=== PATIENT | female | born 1970 | race African-American/Black ===

== ENCOUNTER 2016-11-30 12:05 | Inpatient (IN) ==
[2016-11-30] MEDS ORDERED: NITROGLYCERIN 2% OINT 1 INCH/GM PACK TOP STA (12:23)
--- NOTE | 2016-11-30 12:29 | EKG Report ---
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
[2016-11-30] MEDS: NITROGLYCERIN SL 0.4 MG TABLET SL PRN ×2 (12:32→13:10)
[2016-11-30] MEDS ORDERED: NITROGLYCERIN 2% OINT 1 INCH/GM PACK TOP ONE (13:25)
[2016-11-30] MEDS ORDERED: ENOXAPARIN 80 MG/0.8 ML SYRINGE SUBCUT STA (13:30)
[2016-11-30] MEDS ORDERED: METOPROLOL TARTRATE 5 MG/5 ML VIAL IV STA (13:31)
[2016-11-30] MEDS ORDERED: METOPROLOL TARTRATE 5 MG/5 ML VIAL IV ONE (13:49)
[2016-11-30] MEDS ORDERED: ENOXAPARIN 80 MG/0.8 ML SYRINGE SUBCUT ONE (13:49)
[2016-11-30] MEDS ORDERED: MAGNESIUM SULF RIDER 2 GM in PREMIX 1 EACH IV PRN (13:52)
[2016-11-30] MEDS ORDERED: ACETAMINOPHEN 325 MG TABLET PO PRN (13:52)
[2016-11-30] MEDS ORDERED: ZALEPLON 5 MG CAPSULE PO PRN (13:52)
[2016-11-30] MEDS ORDERED: MAGNESIUM SULF RIDER 4 GM in PREMIX 1 EACH IV PRN (13:52)
[2016-11-30] MEDS ORDERED: MORPHINE 2 MG/1 ML SYRINGE IV PRN (13:52)
--- NOTE | 2016-11-30 13:52 | Emergency Department Note ---
Felix Driver Brittany, am scribing for, and in the presence of, Praful Anderson MD 12:27. Justin Driver Doug C, MD, personally performed the services described in this documentation, ascribed by Alix Washington in my presence, and it is both accurate and complete [id number] . Arrival - Arrival Chief Complaint: Chest Pain Stated Complaint: chest pain ED Nursing Triage Note: Transfer from [place] ER for further evaluation mid- sternal chest pain and increased troponin 0.149. +mid-sternal chest pain radiating into right arm onset last pm. +nausea. Denies Shortness of breath. Mode of Arrival: Stretcher Limitations: No Limitations Source: Patient, RN Notes Reviewed Time Seen by Provider: 11/30/16 12:23 - History of Present Illness HPI Narrative: Patient 45-year-old black female transferred here from [place]' emergency room after she developed substernal chest pain. Patient states this began last night around 10 PM. Patient is sharp substernal pain that radiates to both her arms. Patient states she has nausea and shortness of breath associated with this. Patient has had a previous myocardial infarction about a year ago and told she had a left heart catheterization at that time that showed no evidence of coronary artery stenosis. Patient states his pain is intermittent lasting no more than 20 or 30 minutes. Patient states her pain was 8 of 10 when she arrived to the emergency room. Patient states he continues to smoke about a pack cigarettes a day in spite of riley direction to the contrary. Onset (ago): hour(s) (14) Consistency: constant Severity: severe Severity scale (1-10): 8 Quality: sharp Date of Last Menstrual Period: 11/19/16 Allergies/Adverse Reactions: Allergies Allergy/AdvReac Type Severity Reaction Status Date / Time No Known Allergies Allergy Verified 11/30/16 12:11 Home Medications: Home Medications Medication Instructions Recorded Confirmed Type Lisinopril/Hctz 20-25 [Prinzide 1 tablet PO DAILY 03/04/16 11/30/16 History 20-25] Promethazine Tab [Phenergan Tab] 25 mg PO Q6H PRN 11/30/16 11/30/16 History Ranitidine Tab [Zantac Tab] 75 mg PO DAILY 11/30/16 11/30/16 History Review of System - Review of System 12 point system: reviewed and no additional remarkable complaints except as stated - Review of System Constitutional: Absent: chills, diaphoresis, fever Eyes: Absent: vision change Head/Ears/Nose/Throat: Absent: nasal drainage, sore throat Respiratory: Absent: respiratory distress Cardiovascular: Present: as per HPI, chest pain Gastrointestinal: Present: nausea. Absent: abdominal pain, vomiting, diarrhea, constipation Genitourinary female: Absent: dysuria, frequency, urgency Musculoskeletal: Present: as per HPI, arm pain. Absent: back pain, leg pain, neck pain Skin: Absent: rash Neurological: Absent: headache Psychiatric: Absent: anxiety, depression Hematological/Lymphatic: Absent: easy bleeding, easy bruising Medical,Surgical,& Family Hx - Medical History Cardio: History of: Hypertension, [place] ("last year") - Surgical History HEENT Surgeries: Comment Only: Tonsilectomy & Adenoidectomy (Tonsilectomy) Reproductive Surgeries: Surgical HX of;: Tubal Ligation - Family History Family History: Reports;: Family Diabetes, Family Heart Disease, Family Hypertension - Social History Smoking Status: Current every day smoker Frequency of Alcohol Use: None Type of Drug Use: None Exam Vital Signs: Vital Signs Temperature 97.9 F 11/30/16 12:05 Pulse Rate 95 H 11/30/16 13:00 Respiratory Rate 20 11/30/16 13:00 Blood Pressure 143/92 11/30/16 13:00 O2 Sat by Pulse Oximetry 97 11/30/16 13:00 - General General appearance: alert, in no apparent distress, other (smells strongly of cigarettes) - Head Head exam: Present: normocephalic - Eye Eye exam: Present: PERRL, EOMI - ENT ENT exam: Present: normal exam - Neck Neck exam: Present: normal inspection, full ROM, trachea midline - Chest Chest inspection: Present: normal inspection, symmetric chest wall rise - Respiratory Respiratory exam: Present: normal lung sounds bilaterally - Cardiovascular Cardiovascular exam: Present: regular rate, normal rhythm, normal heart sounds - Abdominal Exam Abdominal exam: Present: soft, normal bowel sounds. Absent: tenderness - Extremities Exam Extremities exam: Present: normal inspection - Back Exam Back exam: Present: normal inspection - Neurological Exam Neurological exam: Present: alert, oriented X3, CN II-XII intact. Absent: motor sensory deficit - Psychiatric Psychiatric exam: Present: normal affect - Skin Skin exam: Present: warm, dry Course Course Narrative: Patient's clinical presentation, laboratory and radiographic findings were discussed with Dr. Perez. He will admit the patient to his services to a telemetry bed. Patient became pain-free after nitroglycerin, metoprolol and subcu Lovenox. Results - Labs Lab Results: I have reviewed the patients labs Labs: Laboratory Tests 11/30/16 12:28 Troponin I 0.137 H - EKG EKG results: interpreted by CLEOPATRA, sinus rhythm (Sinus tachycardia with heart rate of 101 bpm), no acute changes - Diagnostic Findings Procedure: Chest x-ray: report reviewed by me (Chest x-ray from [facility] was unremarkable.) Disposition Clinical Impression: Non-STEMI (non-ST elevated myocardial infarction) Case discussed with: patient, patient's family Disposition: Still a Patient Condition: Guarded Time of Disposition: 13:52
--- NOTE | 2016-11-30 14:19 | EKG Report ---
Stationary ECG Study 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
[2016-11-30 15:59] LABS: Basophils % 0.2 % (0.0-0.8); Hematocrit 33.1 VOL% (35.7-47.0); Hemoglobin 10.3 GM/DL (12.0-16.0); Immature Granulocytes % 0.6 %; Immature Granulocytes Absolute 0.05 #; Lymphocytes # 1.6 10*3/uL (1.4-4.0); Mean Corpuscular HGB Conc 31.1 GM/DL (32-36); Mean Corpuscular Hemoglobin 19 PG (27-34); Mean Corpuscular Volume 60.7 FL (87-102); Mean Platelet Volume 9.6 FL (9.6-12.0); Monocytes # 0.7 10*3/uL (0.11-0.8); Monocytes % 8.6 % (1.7-12.7); Neutrophils # 6.2 10*3/uL (1.4-7.4); Neutrophils % 71.6 % (38.7-73.9); Platelet Count 381 T/CUMM (130-400); Red Blood Count 5.45 MC/CUMM (3.8-5.5); Red Cell Distribution Width 23.3 % (9.3-17.3); White Blood Count 8.6 T/CUMM (4-12)
[2016-11-30 16:10] LABS: Calcium 9.6 MG/DL (8.5-10.1); Osmolality,Calculated 272.8 MOS/KG (273-304); Potassium 2.9 MMOL/L (3.5-5.1)
[2016-11-30] MEDS: DEXTROSE 5% NACL 0.45% 1,000 ML IV SCH (16:15)
[2016-11-30 16:40] LABS: Microcytosis 2+; Poikilocytosis 1+; Target Cells Few
[2016-11-30 16:41] LABS: Hypochromasia 2+; Platelet Estimate Normal
--- NOTE | 2016-11-30 17:45 | EKG Report ---
Stationary ECG Study [facility] Test Date: 11/30/2016 5:44:28 PM Pat Name: UNIQUE ANDREWS Department: Room: 295 Gender: F Coldfusion: KADEN : 1970 Requested by: Matt Jeong Order Number: [id number] Reading MD: PHILIPP LARES Intervals [place] Rate: 92 P: -6 HI: 128 QRS: 0 QRSD: 86 T: 87 QT: 376 QTc: 426 Interpretive Statements SINUS RHYTHM NONSPECIFIC T-WAVE ABNORMALITY Electronically Signed On 11-30-16 22:32:56 CDT by PHILIPP LARES [email or web address]
--- NOTE | 2016-11-30 18:41 | Cardiology History & Physical ---
Assessment and Plan (1) Syncope Status: Acute Assessment and plan: 45-year-old black female, presenting with chest pain, borderline cardiac biomarkers. LVH, without significant ischemic changes on EKG. Prior episodes of recurrent syncope, elevated troponins. Hypertension, hypokalemia. -Chest pain. Keep on telemetry, recheck cardiac enzymes, EKG. Continue aspirin , full dose Lovenox. -Check d-dimer. Massive PE unlikely, she is hemodynamically stable, still a bit hypertensive. -Check echo, she has a systolic murmur and increased P2. -Hypertension with hypokalemia. Replete potassium. This may related to the HTCZ, or could be due to an endocrine issue, secondary hypertension. This will need to be worked up, when her acute issues resolved. -Elevated cardiac biomarkers. On prior presentation, echo was normal, so far the suspicion of myocarditis is low. -Check tox screen, lipids -Keep on telemetry Current Visit: No (2) Chest pain Status: Acute Current Visit: Yes (3) Hypokalemia Status: Acute Current Visit: No History of Present Illness Chief complaint: CP History of present illness: Ms. Hatch is a 45 year old BF, who was not followed by cardiology so far. She was admitted after an episode of chest pain, which started at rest. Substernal, without much radiation, associated with mild shortness of breath. This lasted for more than an hour, and then slowly resolved with nitroglycerin. She still has some occasional, mild recurrence. She is morbidly obese, but denies any recent lower extremity swelling. She had an episode of suspected cholecystitis last year. She had 3 prior hospital evaluations for syncope, echo was normal, she was found to have borderline elevated troponins, but no cardiac evaluation was pursued at that time. This time, she did not have syncope. 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 No exertional dyspnea. She is not sure if she snores. No history of thyroid issues. Currently, she is feeling fine, the blood pressure was elevated on admission, now back to normal. She does note her blood pressure , although has a history of hypertension. She is compliant with her medications. She seems she had an TX in the past, however, there is no documentation of this. EKG shows LVH, with ischemic EKG. Home Medications Medication Instructions Recorded Confirmed Type Lisinopril/Hctz 20-25 [Prinzide 1 tablet PO DAILY 03/04/16 11/30/16 History 20-25] Promethazine Tab [Phenergan Tab] 25 mg PO Q6H PRN 11/30/16 11/30/16 History Ranitidine Tab [Zantac Tab] 75 mg PO DAILY 11/30/16 11/30/16 History Allergies Allergy/AdvReac Type Severity Reaction Status Date / Time No Known Allergies Allergy Verified 11/30/16 12:11 12 point system: reviewed and no additional remarkable complaints except as stated Medical,Surgical,& Family Hx - Medical History Cardio: History of: Hypertension, [place] ("last year") - Surgical History HEENT Surgeries: Comment Only: Tonsilectomy & Adenoidectomy (Tonsilectomy) Reproductive Surgeries: Surgical HX of;: Tubal Ligation - Family History Family History: Reports;: Family Cancer (mother), Family Diabetes (mother), Family Heart Disease (mother), Family Hypertension (mother) Denies;: Family Hematology, Family Psychiatric Problems, Additional Family History Comment Only: Family Stroke (mother?) - Social History Smoking Status: Current every day smoker Frequency of Alcohol Use: None Type of Drug Use: None Cardiology Physical Exam - Constitutional Vitals: Vital Signs Temp Pulse Resp BP Pulse Ox 97.3 F L 96 H 20 160/96 97 11/30/16 16:03 11/30/16 16:03 11/30/16 16:03 11/30/16 16:03 11/30/16 14:30 Intake and Output 11/30/16 11/30/16 11/30/16 07:59 15:59 23:59 Other: Weight 86.636 kg 87.09 kg Patient Weight 11/30/16 23:59 Weight 87.09 kg General appearance: normal weight, morbidly obese - Head Head exam: Present: normal inspection, normocephalic - Eye Eye exam: Absent: conjunctival injection Pupils: Absent: dilated - ENT ENT exam: Present: normal exam, other (Goiter) - Neck Neck exam: Present: normal inspection - Respiratory Respiratory exam: Present: clear to auscultation bilaterally, prolonged expiratory phase - Cardiovascular Cardiovascular exam: Present: regular rate and rhythm, systolic murmur - GI/Abdominal GI/Abdominal exam: Present: normal bowel sounds. Absent: distended - Extremities Exam Extremities exam: Present: normal inspection, normal capillary refill. Absent: edema - Back Exam Back exam: Present: normal inspection - Neurological Exam Neurological exam: Present: alert, oriented X3 - Psychiatric Psychiatric exam: Present: normal affect, normal mood - Skin Skin exam: Present: normal color, warm. Absent: cyanosis Result/EKG - Labs CBC & BMP: 11/30/16 14:08 11/30/16 14:08 Lab Results: I have reviewed the past 24 hour labs Labs: Laboratory Results - last 24 hr 11/30/16 11/30/16 11/30/16 12:28 14:08 14:08 WBC 8.6 RBC 5.45 Hgb 10.3 L Hct 33.1 L MCV 60.7 L MCH 19 L MCHC 31.1 L RDW 23.3 H Plt Count 381 MPV 9.6 Neut % (Auto) 71.6 Lymph % (Auto) 19.0 L Foard % (Auto) 8.6 Eos % (Auto) 0.0 Baso % (Auto) 0.2 Neut # (Auto) 6.2 Lymph # (Auto) 1.6 Foard # (Auto) 0.7 Eos # (Auto) 0.0 Baso # (Auto) 0.0 Immature Gran % 0.6 Nucleated RBC % 0.0 Immature Gran # 0.05 Nucleated RBCs # 0.00 Platelet Estimate Normal Hypochromasia 2+ Poikilocytosis 1+ Microcytosis 2+ Target Cells Few D-Dimer, Quantitative Sodium 137 Potassium 2.9 L Chloride 99 Carbon Dioxide 26 Anion Gap 14.9 BUN 11 Creatinine 0.70 GFR Calculation 139 BUN/Creatinine Ratio 15.00 Glucose 125 H Calculated Osmolality 272.8 L Calcium 9.6 Troponin I 0.137 H 11/30/16 11/30/16 17:07 17:21 WBC RBC Hgb Hct MCV MCH MCHC RDW Plt Count MPV Neut % (Auto) Lymph % (Auto) Foard % (Auto) Eos % (Auto) Baso % (Auto) Neut # (Auto) Lymph # (Auto) Foard # (Auto) Eos # (Auto) Baso # (Auto) Immature Gran % Nucleated RBC % Immature Gran # Nucleated RBCs # Platelet Estimate Hypochromasia Poikilocytosis Microcytosis Target Cells D-Dimer, Quantitative 1.5 Sodium Potassium Chloride Carbon Dioxide Anion Gap BUN Creatinine GFR Calculation BUN/Creatinine Ratio Glucose Calculated Osmolality Calcium Troponin I 0.138 H - EKG EKG results: interpreted by me
[2016-11-30] MEDS ORDERED: POTASSIUM CHLORIDE 20 MEQ TABLET PO ONE (18:43)
--- NOTE | 2016-11-30 18:55 | Ultrasound Report ---
History: Chest pain Date: 11/30/2016 Study: Bilateral lower extremity color-flow venous Doppler study Comparison exam: No previous similar Color Doppler, wave form analysis, and compression analysis of the deep veins of both lower extremities from the common femoral vein level through the popliteal vein level shows that the veins are readily compressible. There is no abnormal intraluminal material to suggest thrombus. Waveform analysis is unremarkable. Ultrasound images were captured and archived. Incidental note is made of a 30 x 27 x 16 mm left popliteal cyst Impression: Normal bilateral lower extremity color flow venous Doppler study. No evidence of acute DVT. Small left popliteal cyst PROCEDURE INTERPRETED AT [facility] DEPARTMENT OF RADIOLOGY Final Report Signed by: Dr. Shawna Bryant
[2016-11-30] MEDS: ONDANSETRON 4 MG/2 ML VIAL IV PRN ×2 (19:00→23:10)
[2016-11-30 19:11] LABS: Barbiturates Screen,Urine Negative (Negative); Benzodiazepines Screen,Urine Negative (Negative); Cannabinoid Screen,Urine Negative (Negative); Opiate Screen,Urine Negative (Negative); Phencyclidine Screen,Urine Negative (Negative)
[2016-11-30] MEDS: ATORVASTATIN 20 MG TABLET PO SCH (22:01)
[2016-11-30] MEDS: METOPROLOL TARTRATE 25 MG TABLET PO SCH (22:01)
[2016-11-30] MEDS ORDERED: ALUMINUM/MAGNES/SIMETH MAX STR 30 ML UDCUP PO PRN (22:29)
--- NOTE | 2016-11-30 22:35 | EKG Report ---
Stationary ECG Study 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
[2016-11-30] MEDS: POTASSIUM CHLORIDE RIDER 10 MEQ in PREMIX 1 EACH IV PRN (23:44)
[2016-12-01] MEDS ORDERED: hydrALAZINE 25 MG TABLET PO PRN (00:03)
[2016-12-01] MEDS: POTASSIUM CHLORIDE RIDER 10 MEQ in PREMIX 1 EACH IV PRN ×4 (00:45→04:53)
[2016-12-01] MEDS: ONDANSETRON 4 MG/2 ML VIAL IV PRN ×3 (03:03→17:10)
[2016-12-01] MEDS ORDERED: METOPROLOL TARTRATE 25 MG TABLET PO ONE (03:18)
[2016-12-01] MEDS: DEXTROSE 5% NACL 0.45% 1,000 ML IV SCH ×3 (06:21→20:23)
[2016-12-01 06:39] LABS: Risk Ratio 4.67
--- NOTE | 2016-12-01 06:54 | EKG Report ---
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
[2016-12-01] MEDS: POTASSIUM CHLORIDE 20 MEQ TABLET PO SCH (08:00)
[2016-12-01] MEDS ORDERED: ENOXAPARIN 80 MG/0.8 ML SYRINGE SUBCUT SCH (08:00)
[2016-12-01] MEDS: PANTOPRAZOLE 40 MG TABLET PO SCH (08:00)
[2016-12-01] MEDS: METOPROLOL TARTRATE 25 MG TABLET PO SCH ×2 (08:01→20:23)
[2016-12-01] MEDS ORDERED: LOSARTAN 50 MG TABLET PO SCH (09:00)
[2016-12-01] MEDS ORDERED: ASPIRIN EC 325 MG TABLET PO SCH (09:00)
--- NOTE | 2016-12-01 09:45 | Cardiology Progress Note ---
<Nereida Roth - Last Filed: 12/01/16 09:42> Assessment and Plan (1) Chest pain Status: Acute Assessment and plan: See plan of care listed below. Current Visit: Yes (2) Hypertension Status: Chronic Assessment and plan: See plan of care listed below. Current Visit: Yes (3) Cardiac murmur Status: Acute Assessment and plan: See plan of care listed below. Current Visit: Yes (4) Tobacco abuse Status: Chronic Assessment and plan: See plan of care listed below. Current Visit: Yes Cardiology - PN: Subj Interval history: Gardening Supervisor: Chris MCKENZIE) SUMMARY - Ms. Hatch is a 45 year old BF, who has not been followed by cardiology so far. She was admitted after an episode of chest pain, which started at rest. This lasted for more than an hour, and then slowly resolved with nitroglycerin. She had 3 prior hospital evaluations for syncope, echo was normal, she was found to have borderline elevated troponins, but no cardiac evaluation was pursued at that time. This time, she did not have syncope. Troponin this admission has been borderline at 0.137, 0.138 and 0.157. D-Dimer 1.5. Venous Doppler of her extremities did not reveal any evidence of acute DVT. She has been admitted under Cardiology's service and housed on the tele floor. December 01 Update - Patient was seen and examined on the telemetry unity. She is without compliants of chest pain, heaviness and tightness. Denies shortness of breath. Troponin mildly elevated, 0.137 0.138 and 0.157. Blood pressure is elevated this morning. Potassium has improved today to 3.7 from 2.9 yesterday. Will continue to replace per protocol. Echocardiogram results pending. Currently normal sinus rhythm with heart rates in the 80s without any overt arrhythmias or ectopy noted. Assessment/plan: 1. CHEST PAIN - Currently without chest pain, heaviness or tightness. Borderline troponin, flat in nature. LVH, without significant ischemic changes on EKG. Echo results pending. Will continue to cycle cardiac biomarkers and EKG. Continue ASA and full dose Lovenox. Will discuss further with Dr. Hilton regarding the need for further cardiac workup. Further recommendations to follow. 2. HYPERTENSION - Her uncontrolled hypertension may be be contributing to patient's mildly elevated troponin. Will increase patient's dose of Cozaar today and further adjust medications as needed throughout her hospitalization. 3. SYSTOLIC MURMUR - Echo results pending. 4. TOBACCO ABUSE - Smoking cessation encouraged. Further plan and addendum to follow per Dr. Hilton Exam (Progress Note) - Constitutional Vitals: Period Temp Pulse Resp BP Sys/Padgett Pulse Ox Last 24 Hr 97.0 F-99.2 F 80-103 16-20 124-199/92-125 96-99 Exam: General: Appears well with no apparent distress. Pleasant and cooperative. Appears comfortable. HEENT: PERRL, normocephalic, atraumatic. Mucous membranes moist. No jaundice noted. Conjunctiva moist and clear, sclerae anicteric Neck: No JVD/HJR, no thyromegaly or lymphadenopathy noted. No carotid bruit appreciated Cardiac: Regular rate and rhythm. Systolic murmur. Lungs: Clear to auscultation without accessory muscle use to assist the respiratory pattern. Not requiring oxygen. Abdomen: Soft, bowel sounds normoactive. Nontender and nondistended. No abdominal bruit or thrill noted. No masses noted. Extremities: No clubbing, cyanosis noted. No edema noted. Upper extremity pulses 2+. Lower extremity pulses 2+. Capillary refill less than 3 seconds. Skin: No unusual lesions or rashes. No skin breakdown appreciated. Neuro: Awake, alert and oriented 3. Moves all extremities well without hemiparesis or paralysis. No essential tremor is appreciated. Result/EKG - Labs CBC & BMP: 11/30/16 14:08 12/01/16 09:07 Lab Results: I have reviewed the past 24 hour labs Labs: Laboratory Results - last 24 hr 11/30/16 11/30/16 11/30/16 12:28 14:08 14:08 WBC 8.6 RBC 5.45 Hgb 10.3 L Hct 33.1 L MCV 60.7 L MCH 19 L MCHC 31.1 L RDW 23.3 H Plt Count 381 MPV 9.6 Neut % (Auto) 71.6 Lymph % (Auto) 19.0 L [place] % (Auto) 8.6 Eos % (Auto) 0.0 Baso % (Auto) 0.2 Neut # (Auto) 6.2 Lymph # (Auto) 1.6 [place] # (Auto) 0.7 Eos # (Auto) 0.0 Baso # (Auto) 0.0 Immature Gran % 0.6 Nucleated RBC % 0.0 Immature Gran # 0.05 Nucleated RBCs # 0.00 Platelet Estimate Normal Hypochromasia 2+ Poikilocytosis 1+ Microcytosis 2+ Target Cells Few D-Dimer, Quantitative Sodium 137 Potassium 2.9 L Chloride 99 Carbon Dioxide 26 Anion Gap 14.9 BUN 11 Creatinine 0.70 GFR Calculation 139 BUN/Creatinine Ratio 15.00 Glucose 125 H Calculated Osmolality 272.8 L Calcium 9.6 Troponin I 0.137 H Triglycerides Cholesterol LDL Cholesterol VLDL Cholesterol HDL Cholesterol Heart Disease Risk Ratio Urine Opiates Screen Ur Barbiturates Screen Ur Phencyclidine Scrn U Amphetamine/Methamph U Benzodiazepines Scrn U Cocaine Metab Screen U Cannabinoids Screen 11/30/16 11/30/16 11/30/16 17:07 17:21 18:57 WBC RBC Hgb Hct MCV MCH MCHC RDW Plt Count MPV Neut % (Auto) Lymph % (Auto) [place] % (Auto) Eos % (Auto) Baso % (Auto) Neut # (Auto) Lymph # (Auto) [place] # (Auto) Eos # (Auto) Baso # (Auto) Immature Gran % Nucleated RBC % Immature Gran # Nucleated RBCs # Platelet Estimate Hypochromasia Poikilocytosis Microcytosis Target Cells D-Dimer, Quantitative 1.5 Sodium Potassium Chloride Carbon Dioxide Anion Gap BUN Creatinine GFR Calculation BUN/Creatinine Ratio Glucose Calculated Osmolality Calcium Troponin I 0.138 H Triglycerides Cholesterol LDL Cholesterol VLDL Cholesterol HDL Cholesterol Heart Disease Risk Ratio Urine Opiates Screen Negative Ur Barbiturates Screen Negative Ur Phencyclidine Scrn Negative U Amphetamine/Methamph Negative U Benzodiazepines Scrn Negative U Cocaine Metab Screen Negative U Cannabinoids Screen Negative 11/30/16 12/01/16 12/01/16 19:52 05:47 09:07 WBC RBC Hgb Hct MCV MCH MCHC RDW Plt Count MPV Neut % (Auto) Lymph % (Auto) [place] % (Auto) Eos % (Auto) Baso % (Auto) Neut # (Auto) Lymph # (Auto) [place] # (Auto) Eos # (Auto) Baso # (Auto) Immature Gran % Nucleated RBC % Immature Gran # Nucleated RBCs # Platelet Estimate Hypochromasia Poikilocytosis Microcytosis Target Cells D-Dimer, Quantitative Sodium Potassium 3.7 Chloride Carbon Dioxide Anion Gap BUN Creatinine GFR Calculation BUN/Creatinine Ratio Glucose Calculated Osmolality Calcium Troponin I 0.157 H Triglycerides 95 Cholesterol 210 H LDL Cholesterol 152.0 VLDL Cholesterol 19.0 HDL Cholesterol 45 Heart Disease Risk Ratio 4.67 Urine Opiates Screen Ur Barbiturates Screen Ur Phencyclidine Scrn U Amphetamine/Methamph U Benzodiazepines Scrn U Cocaine Metab Screen U Cannabinoids Screen <Danita Hilton - Last Filed: 12/01/16 14:10> Assessment and Plan - Time spent with patient Time spent with patient: Less than 30 minutes (1) Syncope Status: Acute Current Visit: No (2) Weight loss Status: Acute Current Visit: No (3) Nausea and vomiting Status: Acute Current Visit: No (4) Hypokalemia Status: Chronic Current Visit: No (5) Chest pain Status: Chronic Assessment and plan: This is noncardiac described as sharp and prickly. Followed emesis. Not related or worsened by exertion. It is worse whenever she twists or turns. Current Visit: Yes (6) Hypertension Status: Chronic Current Visit: Yes (7) Tobacco abuse Status: Chronic Current Visit: Yes (8) Anemia Status: Acute Current Visit: Yes Qualifiers: Anemia type: iron deficiency Cardiology - PN: Subj Interval history: Ms. Hatch is a 45-year-old patient Dr. Iesha Yap who states that she had a GI virus on Thursday she was having nausea and emesis. She went to bed on Thursday night she felt a little better than on Thursday morning she woke up and threw up some more and states after this she had extremely sharp chest pain. It hurt anytime she twisted. She called the emergency room to see what she needed to do they tell her that if she thought she was doing poorly she needed to come to the emergency room. She came to the emergency room was evaluated. She is found to have a preserved ejection fraction with moderate LVH severely uncontrolled hypertension and there is no regional wall motion abnormality on her echocardiogram. Her venous Doppler showed no evidence of DVT. She has not had any exertional pain and all pain started after multiple episodes of emesis. Her emesis has resolved. Exam (Progress Note) - Constitutional Vitals: Period Temp Pulse Resp BP Sys/Padgett Pulse Ox Last 24 Hr 97.0 F-99.2 F 75-100 16-20 147-199/94-129 96-99 - Head Head exam: Present: normal inspection - Eye Pupils: Present: SULMA - ENT ENT exam: Present: normal exam - Respiratory Respiratory exam: Present: rhonchi (This appears to be upper airway noise) - Cardiovascular Cardiovascular exam: Present: regular rate and rhythm (She has an S4) - GI/Abdominal GI/Abdominal exam: Present: normal bowel sounds - Extremities Exam Extremities exam: Present: normal inspection - Back Exam Back exam: Present: normal inspection - Neurological Exam Neurological exam: Present: alert, oriented X3 - Psychiatric Psychiatric exam: Present: normal affect, normal mood - Skin Skin exam: Present: normal color, warm, dry Result/EKG - Labs CBC & BMP: 11/30/16 14:08 12/01/16 09:07 Labs: Laboratory Results - last 24 hr 11/30/16 11/30/16 11/30/16 14:08 14:08 17:07 WBC 8.6 RBC 5.45 Hgb 10.3 L Hct 33.1 L MCV 60.7 L MCH 19 L MCHC 31.1 L RDW 23.3 H Plt Count 381 MPV 9.6 Neut % (Auto) 71.6 Lymph % (Auto) 19.0 L [place] % (Auto) 8.6 Eos % (Auto) 0.0 Baso % (Auto) 0.2 Neut # (Auto) 6.2 Lymph # (Auto) 1.6 [place] # (Auto) 0.7 Eos # (Auto) 0.0 Baso # (Auto) 0.0 Immature Gran % 0.6 Nucleated RBC % 0.0 Immature Gran # 0.05 Nucleated RBCs # 0.00 Platelet Estimate Normal Hypochromasia 2+ Poikilocytosis 1+ Microcytosis 2+ Target Cells Few D-Dimer, Quantitative Sodium 137 Potassium 2.9 L Chloride 99 Carbon Dioxide 26 Anion Gap 14.9 BUN 11 Creatinine 0.70 GFR Calculation 139 BUN/Creatinine Ratio 15.00 Glucose 125 H Calculated Osmolality 272.8 L Calcium 9.6 Total Creatine Kinase CK-MB (CK-2) Troponin I 0.138 H Triglycerides Cholesterol LDL Cholesterol VLDL Cholesterol HDL Cholesterol Heart Disease Risk Ratio Urine Opiates Screen Ur Barbiturates Screen Ur Phencyclidine Scrn U Amphetamine/Methamph U Benzodiazepines Scrn U Cocaine Metab Screen U Cannabinoids Screen 11/30/16 11/30/16 11/30/16 17:21 18:57 19:52 WBC RBC Hgb Hct MCV MCH MCHC RDW Plt Count MPV Neut % (Auto) Lymph % (Auto) [place] % (Auto) Eos % (Auto) Baso % (Auto) Neut # (Auto) Lymph # (Auto) [place] # (Auto) Eos # (Auto) Baso # (Auto) Immature Gran % Nucleated RBC % Immature Gran # Nucleated RBCs # Platelet Estimate Hypochromasia Poikilocytosis Microcytosis Target Cells D-Dimer, Quantitative 1.5 Sodium Potassium Chloride Carbon Dioxide Anion Gap BUN Creatinine GFR Calculation BUN/Creatinine Ratio Glucose Calculated Osmolality Calcium Total Creatine Kinase CK-MB (CK-2) Troponin I 0.157 H Triglycerides Cholesterol LDL Cholesterol VLDL Cholesterol HDL Cholesterol Heart Disease Risk Ratio Urine Opiates Screen Negative Ur Barbiturates Screen Negative Ur Phencyclidine Scrn Negative U Amphetamine/Methamph Negative U Benzodiazepines Scrn Negative U Cocaine Metab Screen Negative U Cannabinoids Screen Negative 12/01/16 12/01/16 12/01/16 05:47 09:07 10:23 WBC RBC Hgb Hct MCV MCH MCHC RDW Plt Count MPV Neut % (Auto) Lymph % (Auto) [place] % (Auto) Eos % (Auto) Baso % (Auto) Neut # (Auto) Lymph # (Auto) [place] # (Auto) Eos # (Auto) Baso # (Auto) Immature Gran % Nucleated RBC % Immature Gran # Nucleated RBCs # Platelet Estimate Hypochromasia Poikilocytosis Microcytosis Target Cells D-Dimer, Quantitative Sodium Potassium 3.7 Chloride Carbon Dioxide Anion Gap BUN Creatinine GFR Calculation BUN/Creatinine Ratio Glucose Calculated Osmolality Calcium Total Creatine Kinase 133 CK-MB (CK-2) < 1.0 Troponin I 0.145 H Triglycerides 95 Cholesterol 210 H LDL Cholesterol 152.0 VLDL Cholesterol 19.0 HDL Cholesterol 45 Heart Disease Risk Ratio 4.67 Urine Opiates Screen Ur Barbiturates Screen Ur Phencyclidine Scrn U Amphetamine/Methamph U Benzodiazepines Scrn U Cocaine Metab Screen U Cannabinoids Screen
[2016-12-01] MEDS: LOSARTAN 50 MG TABLET PO SCH (10:28)
--- NOTE | 2016-12-01 10:29 | XRay Report ---
Portable chest Date: 12/01/2016 Clinical history: Shortness of breath Comparison: 11/30/2016 Technique: Portable AP sitting chest Findings: The heart is normal in size. The lungs are clear with unremarkable mediastinum. Degenerative changes are noted. Impression: No acute cardiopulmonary pathology identified. PROCEDURE INTERPRETED AT [facility] DEPARTMENT OF RADIOLOGY Final Report Signed by: Dr. Diamond Talley
[2016-12-01 11:27] LABS: Troponin I Only 0.145 NG/ML (0.00-0.045)
--- NOTE | 2016-12-01 13:34 | ECHO Report ---
Judith Hatch Exam Date: 12/01/2016 10:38 Referring Physician: Technologist: Ania Rubin Age: 45 Ht (in): 67 Wt (lb): 192 Gender: F Exam Location: [facility] Echo Indications: hypokalemia, syncope, weight loss, dehydration, chest pain, Non- Stemi BP: 187 / 99 HR: 82 Rhythm: Sinus Technical Quality: good IMPRESSIONS Left ventricular ejection fraction is estimated at 55%. There is grade I diastolic dysfunction or impaired relaxation. There is no regional wall motion abnormality appreciated. Moderate concentric left ventricular hypertrophy with diastolic dysfunction. Mild tricuspid valve regurgitation. Tricuspid regurgitation velocities suggest a RVSP of 22 mmHg plus the right atrial pressure. MEASUREMENTS (Male / Female) Normal Values 2D ECHO LV Diastolic Diameter PLAX 3.9 cm 4.2 - 5.9 / 3.9 - 5.3 cm LV Systolic Diameter PLAX 3.1 cm LV Fractional Shortening PLAX 21.1 % IVS Diastolic Thickness 1.6 cm 0.6 - 1.0 / 0.6 - 0.9 cm LVPW Diastolic Thickness 1.4 cm 0.6 - 1.0 / 0.6 - 0.9 cm RV Internal Dim ED PLAX 2.5 cm Aortic Root Diameter 2.8 cm LA Systolic Diameter LX 3.1 cm 3.0 - 4.0 / 2.7 - 3.8 cm DOPPLER TR Peak Velocity 232.0 cm/s TR Peak Gradient 21.5 mmHg FINDINGS Left Ventricle Moderate concentric left ventricular hypertrophy with diastolic dysfunction. Left ventricular ejection fraction is estimated at 55%. There is grade I diastolic dysfunction or impaired relaxation. There is no regional wall motion abnormality appreciated Right Ventricle Normal right ventricular size and systolic function. Right Atrium Normal right atrial size. Left Atrium Normal left atrial size. Mitral Valve Mild mitral valve sclerosis. Mild mitral valve regurgitation. Aortic Valve Mild aortic valve sclerosis. Tricuspid Valve Morphologically normal tricuspid valve. Mild tricuspid valve regurgitation. Tricuspid regurgitation velocities suggest a RVSP of 22 mmHg plus the right atrial pressure. Pulmonic Valve Morphologically normal pulmonic valve. Pericardium No pericardial effusion. Aorta Normal size aortic root and proximal ascending aorta. Danita Hilton (Electronically Signed) Final Date: 01 Dec 2016 13:32
[2016-12-01] MEDS: PROMETHAZINE 25 MG TABLET PO PRN (13:57)
[2016-12-01] MEDS: SPIRONOLACTONE 25 MG TABLET PO SCH (13:58)
[2016-12-01 14:25] LABS: % Iron Saturation 6.5 % (18-50)
[2016-12-01] MEDS: ATORVASTATIN 20 MG TABLET PO SCH (20:23)
[2016-12-02] MEDS: ONDANSETRON 4 MG/2 ML VIAL IV PRN ×2 (00:49→09:15)
[2016-12-02 05:35] LABS: Basophils % 0.6 % (0.0-0.8); Eosinophils % 0.2 % (0.00-10.9); Hematocrit 35.9 VOL% (35.7-47.0); Immature Granulocytes % 0.2 %; Immature Granulocytes Absolute 0.01 #; Lymphocytes # 3.1 10*3/uL (1.4-4.0); Lymphocytes % 47.9 % (21.3-54.2); Mean Corpuscular HGB Conc 30.6 GM/DL (32-36); Mean Corpuscular Hemoglobin 18 PG (27-34); Mean Corpuscular Volume 60.1 FL (87-102); Mean Platelet Volume 9.4 FL (9.6-12.0); Monocytes # 0.7 10*3/uL (0.11-0.8); Monocytes % 11.3 % (1.7-12.7); Neutrophils # 2.6 10*3/uL (1.4-7.4); Neutrophils % 39.8 % (38.7-73.9); Platelet Count 399 T/CUMM (130-400); Red Blood Count 5.97 MC/CUMM (3.8-5.5); Red Cell Distribution Width 23.2 % (9.3-17.3); White Blood Count 6.4 T/CUMM (4-12)
[2016-12-02] MEDS: PROMETHAZINE 25 MG TABLET PO PRN (05:56)
[2016-12-02 05:57] LABS: Calcium 9.1 MG/DL (8.5-10.1); Magnesium 2.1 MG/DL (1.8-2.4); Osmolality,Calculated 267.2 MOS/KG (273-304); Potassium 3.6 MMOL/L (3.5-5.1)
[2016-12-02 06:14] LABS: Hypochromasia 2+
--- NOTE | 2016-12-02 06:23 | EKG Report ---
Stationary ECG Study [facility] Test Date: 12/02/2016 6:22:40 AM Pat Name: UNIQUE ANDREWS Department: Room: 295 Gender: F Auto Transmission Technician: ESTUARDO : 1970 Requested by: Nereida Roth Order Number: [id number] Reading MD: MAYE ALBERT Intervals [place] Rate: 97 P: 75 TN: 119 QRS: 11 QRSD: 82 T: -32 QT: 342 QTc: 397 Interpretive Statements SINUS RHYTHM WITH SHORT TN INTERVAL VOLTAGE CRITERIA FOR LVH Electronically Signed On 12-04-16 16:22:46 CDT by MAYE ALBERT [email or web address]
[2016-12-02] MEDS ORDERED: METOPROLOL TARTRATE 50 MG TABLET PO SCH (08:10)
[2016-12-02] MEDS: LOSARTAN 50 MG TABLET PO SCH (09:19)
[2016-12-02] MEDS: POTASSIUM CHLORIDE 20 MEQ TABLET PO SCH (09:20)
[2016-12-02] MEDS: SPIRONOLACTONE 25 MG TABLET PO SCH (09:20)
[2016-12-02] MEDS: PANTOPRAZOLE 40 MG TABLET PO SCH (09:20)
[2016-12-02] MEDS: DEXTROSE 5% NACL 0.45% 1,000 ML IV SCH (09:24)
--- NOTE | 2016-12-02 11:59 | Discharge Summary ---
<Nereida Roth - Last Filed: 12/02/16 11:57> Hospital Course - Hospital Course Hospital Course: Statistical Typist: Dr. Perez (new) PCP: Dr. Iesha Yap Ms. Hatch is a 45 year old BF, who has not been followed by cardiology so far. She was admitted after an episode of atypical chest pain, which started at rest. She has not had any exertional pain and all pain started after multiple episodes of emesis. Her emesis has now resolved. Thought to be GI in nature. Troponin only mildly elevated, flat in nature. Most likely secondary to patient's uncontrolled hypertension. Over her hospital course, her blood pressure was suboptimally controlled. Aldactone was initiated as she had significant hypokalemia. Procardia and beta-joel was also increased. D- Dimer 1.5. Venous Doppler of her extremities did not reveal any evidence of acute DVT. She was found to have a preserved ejection fraction with moderate LVH severely uncontrolled hypertension and there is no regional wall motion abnormality on her echocardiogram. She had 3 prior hospital evaluations for syncope. Due to patient's past history of syncopal episodes she will need a 30 day event monitor at discharge. This will be followed up on by Dr. Perez in 1 month. She has been instructed to go to [facility] for placement of her 30 day event monitor after discharge. She verbalizes understanding. Patient blood pressure is better controlled this morning. She is anxious for discharge home. Having felt that she has met maximal medical therapy, she will be discharged home in stable condition. Patient has been given a follow-up with Dr. Iesha Yap in 1 week with [facility]. She has also been given a follow-up appointment with Dr. Perez in 1 month. Patient verbalized understanding of discharge instructions and discharge medications. I saw and examined the patient with Ms. Roth. The patient had syncope as her presenting symptoms she has been hemodynamically stable and stable on telemetry since she has been here. She has had this multiple times before she has hypertension that appears to me to be aldosterone related. She has high okay bulimia there is recurrent and uncontrolled hypertension. She has a history of noncompliance with her medication severely uncontrolled hypertension. We have added Aldactone to her regimen and also a low-dose potassium and other anti- hypertensives. Her blood pressure is trending down slowly have asked her to be very compliant with her medicines to keep a blood pressure log with checking the blood pressures in the morning in the mid day the following day in the evening the follow day in a rotating fashion. She is to follow-up with Dr. Yap her primary care physician 1 week to have a Chem-7 to check for creatinine and her potassium on these new agents she is also to provide a blood pressure log at that time with Dr. Yap I specifically gave her the brand name of Omron blood pressure log. She will follow-up with Dr. Perez in 1 month to review the event monitor that we have arranged through [facility] - Time spent with patient Time with patient DS: Greater than 30 minutes Diagnosis - Discharge Diagnosis (1) Chest pain Status: Resolved (2) Hypertension Status: Chronic (3) Tobacco abuse Status: Chronic Specialty Discharge - Follow Up or Referrals Follow up with: Davon Perez MD [Physician] - 01/01/17 1:30 pm (Point with Dr. Perez in 1 month with BMP, mag, CBC and EKG ) Iesha Yap DO [Physician] - 1 Week ( Dr. Iesha Yap in 1 week with BMP and magnesium ) Discharge Plan - Discharge Data Disposition: Disch To Home/Self Care Condition at Discharge: Stable Discharge Diet: heart healthy Activity: resume usual activities as tolerated Hygiene: no restrictions, may shower Weight Bearing at Discharge: weight bear as tolerated Driving: no restrictions Contact your physician if you experience:: fever over 101, Difficulty voiding, Redness or swelling, Nausea/Vomiting, Shortness of breath, Bleeding, pain uncontrolled by pain medications - Discharge Medications New Atorvastatin [Lipitor] 20 mg PO BEDTIME #30 tablet Losartan [Cozaar] 100 mg PO DAILY #30 tablet Metoprolol Tartrate Tab [Lopressor Tab] 50 mg PO BID #60 tablet NIFEdipine XL TAB [Procardia Xl] 60 mg PO BEDTIME #30 tablet Spironolactone [Aldactone] 25 mg PO DAILY #30 tablet hydrALAZINE TAB [Apresoline Tab] 10 mg PO BID #60 tablet Potassium Chloride 10 meq PO DAILY #30 tab.er.prt Continue Ranitidine Tab [Zantac Tab] 75 mg PO DAILY Promethazine Tab [Phenergan Tab] 25 mg PO Q6H PRN PRN Reason: Nausea Discontinued Lisinopril/Hctz 20-25 [Prinzide 20-25] 1 tablet PO DAILY - Follow Up or Referral Follow Up: Davon Perez MD [Physician] - 01/01/17 1:30 pm (Point with Dr. Perez in 1 month with BMP, mag, CBC and EKG ) Iesha Yap DO [Physician] - 1 Week ( Dr. Iesha Yap in 1 week with BMP and magnesium ) - Forms/Instructions Exam - Constitutional Vitals: Period Temp Pulse Resp BP Sys/Padgett Pulse Ox Last 24 Hr 98.1 F-100.1 F 80-101 16-22 136-176/95-111 98-100 Exam: General: Appears well with no apparent distress. Pleasant and cooperative. Appears comfortable. HEENT: PERRL, normocephalic, atraumatic. Mucous membranes moist. No jaundice noted. Conjunctiva moist and clear, sclerae anicteric Neck: No JVD/HJR, no thyromegaly or lymphadenopathy noted. No carotid bruit appreciated Cardiac: Regular rate and rhythm. Systolic murmur. Lungs: Clear to auscultation without accessory muscle use to assist the respiratory pattern. Not requiring oxygen. Abdomen: Soft, bowel sounds normoactive. Nontender and nondistended. No abdominal bruit or thrill noted. No masses noted. Extremities: No clubbing, cyanosis noted. No edema noted. Upper extremity pulses 2+. Lower extremity pulses 2+. Capillary refill less than 3 seconds. Skin: No unusual lesions or rashes. No skin breakdown appreciated. Neuro: Awake, alert and oriented 3. Moves all extremities well without hemiparesis or paralysis. No essential tremor is appreciated. Discharge Results Procedures and tests throughout hospitalization: Pending Orders 12/01/16 14:05 Occult Blood, Stool Routine 12/03/16 04:00 BMP w/ Mg [Basic Metabolic Panel w/Mg] IN AM CBC [Comp Blood Count Auto Diff] IN AM 12/04/16 04:00 BMP w/ Mg [Basic Metabolic Panel w/Mg] IN AM CBC [Comp Blood Count Auto Diff] IN AM 12/05/16 04:00 BMP w/ Mg [Basic Metabolic Panel w/Mg] IN AM CBC [Comp Blood Count Auto Diff] IN AM Labs on day of discharge: Labs from last 24 hours 12/02/16 12/02/16 12/01/16 05:02 05:02 10:23 WBC 6.4 RBC 5.97 H Hgb 11.0 L Hct 35.9 MCV 60.1 L MCH 18 L MCHC 30.6 L RDW 23.2 H Plt Count 399 MPV 9.4 L Neut % (Auto) 39.8 Lymph % (Auto) 47.9 [place] % (Auto) 11.3 Eos % (Auto) 0.2 Baso % (Auto) 0.6 Neut # (Auto) 2.6 Lymph # (Auto) 3.1 [place] # (Auto) 0.7 Eos # (Auto) 0.0 Baso # (Auto) 0.0 Immature Gran % 0.2 Nucleated RBC % 0.0 Immature Gran # 0.01 Nucleated RBCs # 0.00 Hypochromasia 2+ Sodium 134 L Potassium 3.6 Chloride 98 Carbon Dioxide 26 Anion Gap 13.6 BUN 6 L Creatinine 0.90 GFR Calculation 102 BUN/Creatinine Ratio 6.00 Glucose 130 H Calculated Osmolality 267.2 L Calcium 9.1 Magnesium 2.1 Iron 29 L TIBC 444 % Saturation 6.5 L DS: Provider Date of admission: 11/30/16 13:52 Primary care physician: . No PCP Attending physician on admission: Davon Perez MD Discharging clinician: Nereida Roth NP Expected date of discharge: 12/02/16 <Danita Hilton - Last Filed: 12/02/16 13:32> Diagnosis - Discharge Diagnosis (1) Syncope Status: Acute (2) Weight loss Status: Acute (3) Nausea and vomiting Status: Acute (4) Hypokalemia Status: Chronic (5) Chest pain Status: Resolved (6) Hypertension Status: Chronic (7) Tobacco abuse Status: Chronic (8) Anemia Status: Acute
[2016-12-02 12:00] VITALS: BP 136/95
== END 2016-12-02 14:27 | disposition home or self-care (01) | DRG 305 ==
LOC: EDUNIT# → EDBD → N.ED 12:05 → N.EDINP 13:52 → N.TELEN 16:02
PROVIDERS: ADMIT Internal Medicine Clinical Cardiac Electrophysiology; ATTEND Internal Medicine Clinical Cardiac Electrophysiology

== ENCOUNTER 2016-12-29 10:10 | Inpatient (IN) ==
[2016-12-29] MEDS ORDERED: amLODIPine 5 MG TABLET PO STA (10:50)
[2016-12-29] MEDS ORDERED: METOPROLOL TARTRATE 5 MG/5 ML VIAL IV SCH (11:00)
--- NOTE | 2016-12-29 11:03 | Emergency Department Note ---
Deny Driver Rolonda, am scribing for, and in the presence of, Jose Alexandra MD 10: 50. Nasrin Driver James D, MD, personally performed the services described in this documentation, ascribed by Zachary Barclay in my presence, and it is both accurate and complete 054 . Arrival - Arrival Chief Complaint: Chest Pain Stated Complaint: chest pain ED Nursing Triage Note: Pt arrived via ems with complaint of chest pain and nausea. Pt reports pain is 8 out of 10 on pain scale. Reports nausea at this time. Pt transfer from [facility]. Pt reports wearing holter monitor x 2wks. Mode of Arrival: Stretcher Source: Patient, Old Records Reviewed, RN Notes Reviewed Time Seen by Provider: 12/29/16 10:31 - History of Present Illness HPI Narrative: Pt is a 46 y/o female who was transferred from [facility] presents to the ED via EMS with c/o of 8/10 severe chest pain with an onset of earlier today. She has PMHx of HTN and [place]. Pt visited ED x3 weeks ago and was placed on a holter monitor which she still wears and says that it feels as if someone is "standing on her chest". Pt has associated sxs of nausea, SOB, and diaphoresis. 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 No other pain/complaint in ED. Allergies/Adverse Reactions: Allergies Allergy/AdvReac Type Severity Reaction Status Date / Time No Known Allergies Allergy Verified 11/30/16 12:11 Home Medications: Home Medications Medication Instructions Recorded Confirmed Type Promethazine Tab [Phenergan Tab] 25 mg PO Q6H PRN 11/30/16 11/30/16 History Ranitidine Tab [Zantac Tab] 75 mg PO DAILY 11/30/16 11/30/16 History Atorvastatin [Lipitor] 20 mg PO BEDTIME #30 tablet 12/02/16 Rx Losartan [Cozaar] 100 mg PO DAILY #30 tablet 12/02/16 Rx Metoprolol Tartrate Tab [Lopressor 50 mg PO BID #60 tablet 12/02/16 Rx Tab] NIFEdipine XL TAB [Procardia Xl] 60 mg PO BEDTIME #30 tablet 12/02/16 Rx Potassium Chloride 10 meq PO DAILY #30 tab.er.prt 12/02/16 Rx Spironolactone [Aldactone] 25 mg PO DAILY #30 tablet 12/02/16 Rx hydrALAZINE TAB [Apresoline Tab] 10 mg PO BID #60 tablet 12/02/16 Rx Review of System - Review of System 12 point system: reviewed and no additional remarkable complaints except as stated - Review of System Constitutional: Present: diaphoresis. Absent: chills, fever Cardiovascular: Present: dyspnea on exertion (SOB) Gastrointestinal: Present: nausea. Absent: abdominal pain Medical,Surgical,& Family Hx - Medical History Cardio: History of: Hypertension, [place] ("last year") - Surgical History Cardiac Surgeries: Patient Denies: Cardiac Catheterization HEENT Surgeries: Comment Only: Tonsilectomy & Adenoidectomy (Tonsilectomy) - Family History Family History: Reports;: Family Cancer (mother), Family Diabetes (mother), Family Heart Disease (mother), Family Hypertension (mother) Denies;: Family Psychiatric Problems Comment Only: Family Stroke (mother?) - Social History Smoking Status: Heavy tobacco smoker Frequency of Alcohol Use: None Type of Drug Use: None Exam Vital Signs: Vital Signs Temperature 98.8 F 12/29/16 11:13 Pulse Rate 110 H 12/29/16 11:13 Respiratory Rate 15 12/29/16 11:13 Blood Pressure 178/120 12/29/16 11:13 O2 Sat by Pulse Oximetry 100 12/29/16 10:11 GENERAL: This is a well-nourished well-developed black female in no apparent distress. VITAL SIGNS: Reviewed HEENT: Head is atraumatic and normocephalic. Pupils are equal round react to light. Extraocular movements are intact. Oropharynx is benign with moist mucous membranes. NECK: Neck is soft and supple without tenderness. There are no masses. There is no lymphadenopathy. LUNGS: Lungs are clear to auscultation. Chest rises symmetrically. There is no chest wall tenderness. CV: Heart is regular rate and rhythm without murmurs rubs or gallops. ABDOMEN: Abdomen is soft, nontender to palpation. There are no abdominal abnormal masses palpated. There is no organomegaly. Bowel sounds are present and active. SKIN: Skin is warm and dry. No rash. EXTREMITIES: Patient has full range of motion without tenderness. There is no pedal edema. NEUROLOGIC: Awake alert and oriented 4. Cranial nerves II through XII are grossly intact. Motor is 5 over 5 in all extremities bilaterally. Deep tendon reflexes are 2+ and bilaterally equal. Course Course Narrative: Patient will be placed on Cardene infusion due to her uncontrolled hypertension. - Consultations Consultation #1: Discussed with Dr. Posada instrumentation engineering technician for Dr. Iesha Yap. Patient will be admitted to Dr. Yap's service. Initial orders written for her. They will assume care upon patient's arrival to the CCU. Time: 11:03 Results - Labs Lab Results: I have reviewed the patients labs Labs: Lab performed at [facility] and reviewed by me. EKG: Sinus tachycardia with a rate of 112, nonspecific ST-T wave changes. Normal axis. - Diagnostic Findings Procedure: Chest x-ray: image reviewed by me (No cardiomegaly, no pleural effusions, no infiltrates.) Disposition Clinical Impression: Chest pain, Heart palpitations, Essential hypertension, uncontrolled Case discussed with: patient Disposition: Still a Patient Condition: Guarded Time of Disposition: 11:21
--- NOTE | 2016-12-29 11:33 | XRay Report ---
Exam: XR chest 2V Date: 12/29/2016 10:49 AM Indication: Chest pain Comparison: 12/01/2016 Technical: PA lateral Findings: External cardiac leads are present. Mechanical device and telemetry superimposes the mid sternal region. The heart, lungs, mediastinum and bony structures are intact. Impression: 1. No acute cardiopulmonary pathology. PROCEDURE INTERPRETED AT [facility] DEPARTMENT OF RADIOLOGY Final Report Signed by: Dr. Rm Kumari
[2016-12-29] MEDS ORDERED: ONDANSETRON 4 MG/2 ML VIAL IV PRN (12:28)
[2016-12-29] MEDS ORDERED: ACETAMINOPHEN 325 MG TABLET PO PRN (12:28)
[2016-12-29] MEDS ORDERED: METOPROLOL TARTRATE 50 MG TABLET PO SCH (12:30)
[2016-12-29] MEDS: SODIUM CHLORIDE 0.9% 1,000 ML IV SCH (12:47)
[2016-12-29] MEDS ORDERED: ENOXAPARIN 40 MG/0.4 ML SYRINGE SUBCUT SCH (13:00)
[2016-12-29] MEDS: niCARdipine INJ 25 MG in SODIUM CHLORIDE 0.9% 240 ML IV SCH ×2 (13:38→18:46)
[2016-12-29 14:40] LABS: Troponin I Only 0.042 NG/ML (0.00-0.045)
[2016-12-29] MEDS ORDERED: MAGNESIUM SULF RIDER 2 GM in PREMIX 1 EACH IV PRN (14:43)
[2016-12-29] MEDS ORDERED: hydrALAZINE 10 MG TABLET PO SCH (15:00)
--- NOTE | 2016-12-29 15:06 | Cardiology History & Physical ---
Assessment and Plan - Time spent with patient Time spent with patient: Greater than 30 minutes Time spent discussing smoking cessation with patient: 3 to 10 minutes (1) Hypertensive crisis Status: Acute Assessment and plan: SEE PLAN OF CARE LISTED BELOW Current Visit: Yes (2) Noncompliance Status: Chronic Assessment and plan: SEE PLAN OF CARE LISTED BELOW Current Visit: Yes (3) Syncope Status: Acute Assessment and plan: SEE PLAN OF CARE LISTED BELOW Current Visit: No (4) Nausea and vomiting Status: Acute Assessment and plan: SEE PLAN OF CARE LISTED BELOW Current Visit: No (5) Hypertension Status: Chronic Assessment and plan: SEE PLAN OF CARE LISTED BELOW Current Visit: No (6) Tobacco abuse Status: Chronic Assessment and plan: SEE PLAN OF CARE LISTED BELOW Current Visit: No (7) Anemia Status: Chronic Assessment and plan: SEE PLAN OF CARE LISTED BELOW Current Visit: No Qualifiers: Anemia type: iron deficiency (8) Chest pain Status: Acute Assessment and plan: SEE PLAN OF CARE LISTED BELOW Current Visit: Yes History of Present Illness Chief complaint: hypertensive urgency, chest pain History of present illness: 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 Patient was discharged from the hospital December 02, 2016 after being evaluated and treated for uncontrolled hypertension, atypical chest pain and syncope. She was sent home with an event monitor to evaluate her history of syncope. Troponins were elevated at 0.1 through the hospital stay but was thought to be related to her uncontrolled hypertension. Echocardiogram reveals severe LVH, preserved EF. Patient presented to [facility] this morning after experiencing nausea, vomiting, chest pain and syncope. She was found to be significantly hypertensive again with a blood pressure noted to be 200s over 120. She was started on IV Cardene and transferred to our facility. She is being seen in the CCU. Patient remarks that she has been feeling poorly since Thursday. She began to feel nausea and no vomiting until Thursday. Intermittently since Thursday she has had nausea, vomiting and this morning chest pain around 0800. Chest pain has been intermittent, located in the substernal area without radiation. She describes this as heaviness. She can identify no aggravating nor any alleviating factors. She rates the discomfort as a 7 on a scale of 1- 10 and she is currently chest pain-free. Troponin on arrival has been negative , EKG reveals sinus rhythm with left axis deviation, abnormal EKG, diffuse ST-T wave changes noted. Patient has had intermittent shortness of breath as well. This is occurring at various times and not necessarily associated with chest pain. Patient did have elevated troponin during her last admission. Dr. Ruvalcaba is present and has discussed the possibility of cardiac catheterization, also renal arteriogram with patient. She is agreeable to undergo procedure in the morning. Currently , she is on IV Cardene and we will incorporate her home medications and wean Cardene as able. Of note, I did call her pharmacy. 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 She insists that she is taking what she picked up. Of note, she is taking lisinopril and losartan according to her home medication. At discharge, December 02, 2016, her lisinopril/HCTZ was discontinued and she was prescribed Cozaar. She did not bring her medications with her at this time and cannot verify which medication she is taking. She did have a urine for metanephrines during the last hospital stay and I will see if these results have returned from the mail out. During her last admission in November 2016, she was noted to have a microcytic anemia with MCV of 60 , hemoglobin hematocrit 11.0 and 35.9 respectively. Iron studies showed: Low iron (29) percent saturation, 0.5% saturation only 6.5 and TIBC 444. She continues to have a menstrual cycle each month status post tubal ligation. She remarks that her menses is regular and moderate to heavy. We will order a urine prior to heart cath and the urine drug screen. ASSESSMENT/PLAN: 1. HYPERTENSIVE CRISIS - up titrate blood pressure medications. She is currently on IV Cardene will wean this off as able 2. CHEST PAIN - will undergo heart cath in the morning. Continue PPI. 3. ABNORMAL EKG - n.p.o. after midnight for heart catheterization in the morning. Will continue to cycle her cardiac biomarkers and monitor her EKG. 4. SEVERE LVH -controlled blood pressure 5. MICROCYTIC ANEMIA - may consider starting iron prior to discharge 6. TOBACCOISM - greater than 5 minutes was spent discussing the merits of tobacco cessation 7. HISTORY OF NON-COMPLIANCE - reiterated the importance of medication compliance. 8. RULE OUT GLYNN - will undergo cardiac catheterization with bilateral renal angiogram Home Medications Medication Instructions Recorded Confirmed Type Promethazine Tab [Phenergan Tab] 25 mg PO Q6H PRN 11/30/16 12/29/16 History Losartan [Cozaar] 100 mg PO DAILY #30 tablet 12/02/16 12/29/16 Rx Metoprolol Tartrate Tab [Lopressor 50 mg PO BID #60 tablet 12/02/16 12/29/16 Rx Tab] NIFEdipine XL TAB [Procardia Xl] 60 mg PO BEDTIME #30 tablet 12/02/16 12/29/16 Rx Spironolactone [Aldactone] 25 mg PO DAILY #30 tablet 12/02/16 12/29/16 Rx hydrALAZINE TAB [Apresoline Tab] 10 mg PO BID #60 tablet 12/02/16 12/29/16 Rx Atorvastatin [Lipitor] 20 mg PO DAILY 12/29/16 12/29/16 History Lisinopril/Hydrochlorothiazide 1 each PO BEDTIME 12/29/16 12/29/16 History [Lisinopril-Hctz 20-25 mg Tab] Potassium Chloride 10 meq PO DAILY 12/29/16 12/29/16 History Allergies Allergy/AdvReac Type Severity Reaction Status Date / Time No Known Allergies Allergy Verified 11/30/16 12:11 Review of systems: REVIEW OF SYSTEMS: - Constitutional Constitutional: Present: Fatigue. Absent: syncope, anorexia, night sweats - EENT Eyes: Absent: blurry vision, loss of vision, diplopia Ears: Absent: decreased hearing, ear pain, ear discharge - Cardiovascular Cardiovascular: Present: chest pain at rest and with exertion, dyspnea on exertion. Denies edema, palpitations. Absent: chest pain with deep breath, claudication - Respiratory Respiratory: Present: JOHNSON, denies cough. Absent: wheezing, hemoptysis, change in phlegm color - Gastrointestinal Gastrointestinal: Denies: constipation. Absent: adbominal pain, hematemesis, hematochezia, melena, change in bowel habits, nausea - Genitourinary Genitourinary: Absent: difficulty urinating, dysuria, urinary hesitancy, flank pain - Musculoskeletal Musculoskeletal: Present: back pain Absent: joint swelling, muscle cramps, muscle weakness - Neurological Neurological: Present: normal gait without frequent falls. Absent: dizziness, hemiparesis - Psychiatric Psychiatric: Absent: anxiety, depression, difficulty concentrating - Endocrine Endocrine: Present: fatigue. Absent: cold intolerance, heat intolerance, polyuria, polyphagia, polydipsia - Hematologic/Lymphatic Hematologic/Lymphatic: Present: easy bruising. Absent: easy bleeding -Integumentary Integumentary: Absent: lesions, rashes, skin breakdown Medical,Surgical,& Family Hx - Medical History Cardio: History of: Hypertension, [place] ("last year") No history of: Cardiac Dysrhythmia, CAD Gastrointestinal: History of: GI Problems ("They say I have gallstones") - Surgical History Cardiac Surgeries: Patient Denies: Cardiac Catheterization HEENT Surgeries: Comment Only: Tonsilectomy & Adenoidectomy (Tonsilectomy) Reproductive Surgeries: Surgical HX of;: Tubal Ligation - Family History Family History: Reports;: Family Cancer (mother), Family Diabetes (mother), Family Heart Disease (mother), Family Hypertension (mother) Denies;: Family Psychiatric Problems Comment Only: Family Stroke (mother?) - Social History Smoking Status: Current every day smoker Have you smoked in the last 12 months: Yes Time spent discussing smoking cessation with patient: 3 to 10 minutes Frequency of Alcohol Use: None Type of Drug Use: None Cardiology Physical Exam - Constitutional Vitals: Vital Signs Temp Pulse Resp BP Pulse Ox 98.8 F 94 H 22 170/111 98 12/29/16 12:31 12/29/16 14:00 12/29/16 14:00 12/29/16 14:00 12/29/16 14:00 Intake and Output 12/28/16 12/29/16 12/29/16 23:59 07:59 15:59 Other: Weight 84.5 kg Patient Weight 12/29/16 23:59 Weight 84.5 kg Exam: General: [Appears well with no apparent distress.] [Pleasant and cooperative. ] [Appears comfortable.] HEENT: [PERRL, normocephalic, atraumatic. Mucous membranes moist. No jaundice noted. Conjunctiva moist and clear, sclerae anicteric] Neck: No JVD/HJR, no thyromegaly or lymphadenopathy noted. No carotid bruit appreciated Cardiac: [Regular rate and rhythm.] [No murmur rub or gallop.] PMI is nondisplaced. Lungs: [Clear to auscultation without accessory muscle use to assist the respiratory pattern.] Oxygen in use via nasal cannula Abdomen: Soft, bowel sounds normoactive. Nontender and nondistended. No abdominal bruit or thrill noted. No masses noted. Musculoskeletal: No fluid collection. Decreased range of motion is noted. Extremities: No clubbing, cyanosis noted. [ No edema noted.] Upper extremity pulses 2+. Lower extremity pulses 2+. Capillary refill less than 3 seconds. Skin: No unusual lesions or rashes. No skin breakdown appreciated. Neuro: Awake, alert and oriented 3. Moves all extremities well without hemiparesis or paralysis. No essential tremor is appreciated. Result/EKG - Labs Lab Results: I have reviewed the past 24 hour labs Labs: Laboratory Results - last 24 hr 12/29/16 13:49 Total Creatine Kinase 106 CK-MB (CK-2) < 1.0 Troponin I 0.042 - Diagnostic Findings Procedure: Chest x-ray: report reviewed by me - EKG EKG results: interpreted by sc EKG shows: sinus rhythm
[2016-12-29] MEDS: METOPROLOL TARTRATE 50 MG TABLET PO SCH ×2 (15:17→20:30)
--- NOTE | 2016-12-29 15:17 | EKG Report ---
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
[2016-12-29] MEDS: SPIRONOLACTONE 25 MG TABLET PO SCH (15:27)
[2016-12-29] MEDS ORDERED: PROMETHAZINE 25 MG TABLET PO PRN (15:45)
[2016-12-29 16:22] LABS: PT Patient Result 10.8 SECS
[2016-12-29] MEDS: DOCUSATE SODIUM 100 MG CAPSULE PO SCH (20:30)
[2016-12-29] MEDS ORDERED: ATORVASTATIN 20 MG TABLET PO SCH (21:00)
[2016-12-30] MEDS: niCARdipine INJ 25 MG in SODIUM CHLORIDE 0.9% 240 ML IV SCH (04:22)
[2016-12-30 04:52] LABS: Basophils % 0.3 % (0.0-0.8); Eosinophils % 0.1 % (0.00-10.9); Hematocrit 32.6 VOL% (35.7-47.0); Hemoglobin 10.3 GM/DL (12.0-16.0); Immature Granulocytes % 0.3 %; Immature Granulocytes Absolute 0.02 #; Lymphocytes # 1.5 10*3/uL (1.4-4.0); Lymphocytes % 20.4 % (21.3-54.2); Mean Corpuscular HGB Conc 31.6 GM/DL (32-36); Mean Corpuscular Hemoglobin 19 PG (27-34); Mean Corpuscular Volume 60.9 FL (87-102); Mean Platelet Volume 8.7 FL (9.6-12.0); Monocytes # 0.7 10*3/uL (0.11-0.8); Monocytes % 9.7 % (1.7-12.7); Neutrophils # 5.1 10*3/uL (1.4-7.4); Neutrophils % 69.2 % (38.7-73.9); Platelet Count 346 T/CUMM (130-400); Red Blood Count 5.35 MC/CUMM (3.8-5.5); Red Cell Distribution Width 25.6 % (9.3-17.3); White Blood Count 7.3 T/CUMM (4-12)
[2016-12-30 05:12] LABS: Anisocytosis 1+; Platelet Estimate Normal; Schistocytes Few
[2016-12-30 05:30] LABS: Calcium 8.8 MG/DL (8.5-10.1); Osmolality,Calculated 274.7 MOS/KG (273-304); Potassium 3.3 MMOL/L (3.5-5.1); VLDL CHOLESTEROL 15.8 MG/DL
--- NOTE | 2016-12-30 06:30 | EKG Report ---
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
[2016-12-30] MEDS ORDERED: DIAZEPAM 5 MG TABLET PO ONE ×2 (07:00→08:00)
[2016-12-30] MEDS ORDERED: diphenhydrAMINE CAP 25 MG CAPSULE PO ONE ×2 (07:00→08:00)
--- NOTE | 2016-12-30 07:19 | Cardiology Progress Note ---
Cardiology - PN: Subj Interval history: Cardiology note 46-year-old woman admitted with hypertensive urgency chest pain and nausea Feels much better today. Blood pressure 130/86 Telemetry shows sinus rhythm low 100s O2 sat 98 on room air Headache resolved no further chest pain Regular rhythm no murmur or gallop Decreased breath sounds but clear Abdomen soft benign Femoral pulses 2+ without bruit No leg edema Lab data today White count 7.3 hemoglobin 10.3 hematocrit 32.6 MCV 60 Sodium 138 potassium 3.3 chloride 104 CO2 23 BUN 9 creatinine 0.5 Magnesium 2.2 INR 1.0 Impression Hypertensive urgency, similar presentation November 30, 2016 Noncompliance of medications suspected Tobacco abuse Chest pain Microcytic anemia MCV 60 hemoglobin 10.3 Recent echo showed preserved LV function with severe LVH Plan Cardiac cath and renal artery angiogram today Normal saline hydration Risk factor modification Exam (Progress Note) - Constitutional Vitals: Period Temp Pulse Resp BP Sys/Padgett Pulse Ox Last 24 Hr 98.1 F-99.4 F 84-144 15-37 105-199/67-143 95-100 Result/EKG - Labs CBC & BMP: 12/30/16 04:44 12/30/16 04:44 Labs: Laboratory Results - last 24 hr 12/29/16 12/29/16 12/30/16 13:49 15:23 01:37 WBC RBC Hgb Hct MCV MCH MCHC RDW Plt Count MPV Neut % (Auto) Lymph % (Auto) [place] % (Auto) Eos % (Auto) Baso % (Auto) Neut # (Auto) Lymph # (Auto) [place] # (Auto) Eos # (Auto) Baso # (Auto) Immature Gran % Nucleated RBC % Immature Gran # Nucleated RBCs # Platelet Estimate Anisocytosis Schistocytes INR 1.0 PT Patient/Control Mix 10.8 Sodium Potassium Chloride Carbon Dioxide Anion Gap BUN Creatinine GFR Calculation BUN/Creatinine Ratio Glucose Calculated Osmolality Calcium Magnesium Total Creatine Kinase 106 CK-MB (CK-2) < 1.0 Troponin I 0.042 Triglycerides Cholesterol LDL Cholesterol VLDL Cholesterol HDL Cholesterol Heart Disease Risk Ratio Urine Test Negative 12/30/16 12/30/16 12/30/16 04:44 04:44 04:44 WBC 7.3 RBC 5.35 Hgb 10.3 L Hct 32.6 L MCV 60.9 L MCH 19 L MCHC 31.6 L RDW 25.6 H Plt Count 346 MPV 8.7 L Neut % (Auto) 69.2 Lymph % (Auto) 20.4 L J[place]uld % (Auto) 9.7 Eos % (Auto) 0.1 Baso % (Auto) 0.3 Neut # (Auto) 5.1 Lymph # (Auto) 1.5 J[place]uld # (Auto) 0.7 Eos # (Auto) 0.0 Baso # (Auto) 0.0 Immature Gran % 0.3 Nucleated RBC % 0.0 Immature Gran # 0.02 Nucleated RBCs # 0.00 Platelet Estimate Normal Anisocytosis 1+ Schistocytes Few INR PT Patient/Control Mix Sodium 138 Potassium 3.3 L Chloride 104 Carbon Dioxide 23 Anion Gap 14.3 BUN 9 Creatinine 0.50 L GFR Calculation 153 BUN/Creatinine Ratio 18.00 Glucose 111 H Calculated Osmolality 274.7 Calcium 8.8 Magnesium 2.2 Total Creatine Kinase CK-MB (CK-2) Troponin I Triglycerides 79 Cholesterol 165 LDL Cholesterol 99.0 VLDL Cholesterol 15.8 HDL Cholesterol 55 Heart Disease Risk Ratio 3.00 Urine Test
[2016-12-30] MEDS ORDERED: LIDOCAINE 1% 20 ML VIAL ONE (07:58)
[2016-12-30] MEDS ORDERED: MIDAZOLAM 2 MG/2 ML VIAL ONE ×2 (07:58→08:58)
[2016-12-30] MEDS ORDERED: fentaNYL 100 MCG/2 ML VIAL ONE (07:58)
[2016-12-30] MEDS ORDERED: SODIUM BICARBONATE 2.4 MEQ/5 ML VIAL ONE (07:58)
[2016-12-30] MEDS ORDERED: HEPARIN/NACL 0.9% 2 UNITS/ML 1,000 ML IV ONE (07:58)
[2016-12-30] MEDS: METOPROLOL TARTRATE 50 MG TABLET PO SCH (08:10)
[2016-12-30] MEDS: POTASSIUM CHLORIDE RIDER 10 MEQ in PREMIX 1 EACH IV PRN ×2 (08:12→11:50)
--- NOTE | 2016-12-30 08:39 | History and Physical Update ---
Sedation H&P Update - History and Physical H&P was reviewed, the patient examined and there: are no changes in the patients condition since last H&P was completed. - Dictation Physical: refer to scanned H&P - Physical Exam Mental Status: alert and oriented Heart: regular rate and rhythm Lung: clear to auscultation Abdomen: within normal limits Vitals: within normal limits - Sedation Plan for Sedation: moderate Patient Consent: Procedure disscussed with patient and patinet has consented., Risks and benefits were discussed with patient,including infection,, bleeding, injury to surrounding structures, seizure, temporary nerve, Patient understands and accepts potential risks/benefits and agrees to, proceed. ASA Class: III Airway Assessment: Class II: Soft palate, uvula, fauces visible
[2016-12-30] MEDS ORDERED: ASPIRIN 325 MG TABLET ONE (08:50)
[2016-12-30] MEDS ORDERED: PANTOPRAZOLE 40 MG TABLET PO SCH (09:00)
[2016-12-30] MEDS ORDERED: POTASSIUM CHLORIDE 10 MEQ TABLET PO SCH (09:00)
[2016-12-30] MEDS ORDERED: ACETAMINOPHEN/CODEINE 300-30 MG TABLET PO PRN (09:16)
[2016-12-30] MEDS ORDERED: MORPHINE 2 MG/1 ML SYRINGE IV PRN (09:16)
--- NOTE | 2016-12-30 09:30 | Cardiology Operative Report ---
Date of Procedure:: 12/30/16 Pre-op diagnosis: Chest pain, multidrug-resistant hypertension Post-op diagnosis: other (Angiographically normal coronary and renal arteries) Procedure: 1. Selective left and right coronary angiography. 2. Left heart catheterization with left ventriculogram. 3. Right iliac angiography to rule out vascular complications. 4. Bilateral selective renal angiography. Impression: 1. Angiographically normal coronary and renal arteries. 2. Right or Co-dominant coronary arteries. 3. Ejection fraction 70 %. 4. Angiographically normal right iliac artery without evidence of vascular complications. Plan: 1. Medical management. 2. Risk factor modification. Equipment: Diagnostic 6 Ecuadorean JL4, JR4, pigtail catheters. Hemodynamics: Aortic pressure 84/60 mmHg, left ventricular pressure 88/2 mmHg, LVEDP 7 mmHg Sedation: Versed 3 Milgram's, fentanyl 75 mcg Procedure: After informed consent was obtained the patient was prepped and draped in sterile fashion. The right groin was infiltrated with 1% lidocaine and the right femoral artery was accessed via modified Seldinger technique using a micropuncture needle and a 6 Ecuadorean femoral arterial sheath was placed. All catheter exchanges were performed over a guidewire under fluoroscopic guidance. Diagnostic 6 Ecuadorean JL4 and JR4 catheters were advanced to the left and right coronary arteries respectively and multiple cineangiograms were performed in varying degrees of obliquity and angulation. The JR4 catheter was then withdrawn into the abdominal aorta and used to selectively cannulate the left and right renal arteries respectively, and angiography was performed of these vessels. Thereafter a pigtail catheter was advanced into the left ventricle where hemodynamics were obtained followed by left ventriculogram. At conclusion of the procedure right iliac angiography was performed to rule out vascular complications. Findings: 1. The left main artery is angiographically normal. 2. The left anterior descending artery extends to the apex and wraps around. It is angiographically normal. 3. There is not an intermediate ramus branch. 4. The circumflex artery is angiographically normal. It may be a codominant vessel, as there is minimal left ventricular contribution from the small right coronary artery, and there are low marginal branches that appear to supply some of the posterior lateral and inferior territory. 5. The right coronary artery is a small vessel that is minimally dominant or codominant. It is angiographically normal. 6. Ejection fraction is 70 % with normal anterior, inferior and apical wall motion. 7. No significant mitral regurgitation. 8. No significant aortic stenosis. 9. The right iliac artery is angiographically normal without evidence of vascular complications. 10. The bilateral renal arteries are angiographically normal. Contrast use: 101 cc Fluoro time: 2.8 minutes Complications: none Specimens removed: none Devices implanted: none Anesthesia: moderate conscious sedation Surgeon / Physician: Makenzie Collier Evs Attendant: none (Maureen Meza) Estimated blood loss: minimal Specimens: none sent Condition: stable Disposition: ICU/CCU
[2016-12-30] MEDS: SODIUM CHLORIDE 0.9% 1,000 ML IV SCH (10:08)
[2016-12-30] MEDS: SPIRONOLACTONE 25 MG TABLET PO SCH (11:53)
[2016-12-30] MEDS: DOCUSATE SODIUM 100 MG CAPSULE PO SCH (11:53)
[2016-12-30] MEDS ORDERED: POTASSIUM CHLORIDE 20 MEQ TABLET PO ONE (14:21)
--- NOTE | 2016-12-30 16:05 | Discharge Summary ---
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 Hatch, 46BF, with risk factors significant for: Hypertension, history of noncompliance, tobaccoism. Patient was discharged from the hospital December 02, 2016 after being evaluated and treated for uncontrolled hypertension, atypical chest pain and syncope. She was sent home with an event monitor to evaluate her history of syncope. So far, no arrythmia has been noted. Troponins were elevated at 0.1 through the hospital stay but was thought to be related to her uncontrolled hypertension. Echocardiogram reveals severe LVH, preserved EF 55%. She presented to [facility] December 29, 2016 after experiencing nausea, vomiting, chest pain. She was found to be significantly hypertensive again with a blood pressure noted to be 240/120. She was started on IV Cardene and transferred to our facility. She reported having picked-up her medications and taking them as prescribed. However, as her home medications were introduced into her medication regimen, her blood pressure came under good control. 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 However, patient tells me she believes she is only taking 2 antihypertensives. She did not bring her medications with her so is difficult to further assess. She had complaints of chest pain. For this reason, she underwent elective cardiac catheterization and bilateral renal arteriograms performed by Dr. Makenzie Collier December 30, 2016 with the following impression noted: Findings: 1. The left main artery is angiographically normal. 2. The left anterior descending artery extends to the apex and wraps around. It is angiographically normal. 3. There is not an intermediate ramus branch. 4. The circumflex artery is angiographically normal. It may be a codominant vessel, as there is minimal left ventricular contribution from the small right coronary artery, and there are low marginal branches that appear to supply some of the posterior lateral and inferior territory. 5. The right coronary artery is a small vessel that is minimally dominant or codominant. It is angiographically normal. 6. Ejection fraction is 70 % with normal anterior, inferior and apical wall motion. 7. No significant mitral regurgitation. 8. No significant aortic stenosis. 9. The right iliac artery is angiographically normal without evidence of vascular complications. 10. The bilateral renal arteries are angiographically normal. It is noted that her chest pain is noncardiac in nature. She does not have renal artery stenosis. I suspect, she has not been taking her antihypertensives and by simply taking them, it has come under control easily. I did order a urine drug screen however this was not collected. November 2016 patient underwent 24 hour urine for metanephrines, results still pending. Having felt him at maximal medical therapy, patient is being discharged home in stable condition. Patient has been instructed to remove right groin dressing in the morning. I reiterated the importance of taking her medications without fail. She verbalized understanding of this information. She currently has an appointment to see Dr. Perez and she has been instructed to keep this appointment. At that visit the following labs will be obtained: BMP, magnesium , CBC, EKG. She will resume her preadmission medications including the following: Atorvastatin 20 mg orally each evening Metoprolol tartrate 50 mg orally twice daily Cozaar 100 mg orally daily Hydralazine 50 mg orally 3 times daily Nifedipine 60 mg orally each evening Spironolactone 25 mg orally daily Potassium chloride 10 mEq 1 p.o. daily Patient does not require aspirin - Time spent with patient Time with patient DS: Greater than 30 minutes Diagnosis - Discharge Diagnosis (1) Hypertensive crisis Status: Resolved (2) Noncompliance Status: Chronic (3) Syncope Status: Resolved (4) Nausea and vomiting Status: Resolved (5) Hypertension Status: Chronic (6) Tobacco abuse Status: Chronic (7) Anemia Status: Chronic (8) Chest pain Status: Resolved Specialty Discharge - Follow Up or Referrals Follow up with: Davon Perez MD [Physician] - (Has appointment Dr. Perez at this . Please make sure the following is obtained at that visit, BMP, magnesium, CBC and EKG. ) Discharge Plan - Discharge Data Disposition: Disch To Home/Self Care Condition at Discharge: Stable Discharge Diet: heart healthy Activity: other (Post cath expectations) Hygiene: other (Post cath expected) Weight Bearing at Discharge: other (Post cath expectations) Driving: other (Post cath expectations) Contact your physician if you experience:: fever over 101, Difficulty voiding, Redness or swelling, Nausea/Vomiting, Shortness of breath, Bleeding, pain uncontrolled by pain medications - Discharge Medications New hydrALAZINE TAB [Apresoline Tab] 50 mg PO TID #90 tablet Continue Losartan [Cozaar] 100 mg PO DAILY #30 tablet Metoprolol Tartrate Tab [Lopressor Tab] 50 mg PO BID #60 tablet NIFEdipine XL TAB [Procardia Xl] 60 mg PO BEDTIME #30 tablet Spironolactone [Aldactone] 25 mg PO DAILY #30 tablet Potassium Chloride 10 meq PO DAILY Atorvastatin [Lipitor] 20 mg PO DAILY Promethazine Tab [Phenergan Tab] 25 mg PO Q6H PRN PRN Reason: Nausea Discontinued hydrALAZINE TAB [Apresoline Tab] 10 mg PO BID #60 tablet Lisinopril/Hydrochlorothiazide [Lisinopril-Hctz 20-25 mg Tab] 1 each PO BEDTIME - Follow Up or Referral - Forms/Instructions Exam - Constitutional Vitals: Period Temp Pulse Resp BP Sys/Padgett Pulse Ox Last 24 Hr 97.9 F-99.4 F 70-120 14-37 90-164/57-104 95-99 Exam: Exam: General: [Appears well with no apparent distress.] [Pleasant and cooperative. ] [Appears comfortable.] HEENT: [PERRL, normocephalic, atraumatic. Mucous membranes moist. No jaundice noted. Conjunctiva moist and clear, sclerae anicteric] Neck: No JVD/HJR, no thyromegaly or lymphadenopathy noted. No carotid bruit appreciated Cardiac: [Regular rate and rhythm.] [No murmur rub or gallop.] PMI is nondisplaced. Lungs: [Clear to auscultation without accessory muscle use to assist the respiratory pattern.] Oxygen in use via nasal cannula Abdomen: Soft, bowel sounds normoactive. Nontender and nondistended. No abdominal bruit or thrill noted. No masses noted. Musculoskeletal: No fluid collection. Decreased range of motion is noted. Extremities: Right groin is soft, no hematoma is noted. Dressing is intact. No clubbing, cyanosis noted. [ No edema noted.] Upper extremity pulses 2+. Lower extremity pulses 2+. Capillary refill less than 3 seconds. Skin: No unusual lesions or rashes. No skin breakdown appreciated. Neuro: Awake, alert and oriented 3. Moves all extremities well without hemiparesis or paralysis. No essential tremor is appreciated. Discharge Results Procedures and tests throughout hospitalization: Pending Orders 12/29/16 15:10 Occult Blood, Stool Routine 12/30/16 08:37 CL heart Routine 12/31/16 04:00 Basic Metabolic Panel IN AM Comp Blood Count Auto Diff IN AM Magnesium IN AM 01/01/17 04:00 Comp Blood Count Auto Diff IN AM Magnesium IN AM 01/02/17 04:00 Comp Blood Count Auto Diff IN AM Magnesium IN AM Labs on day of discharge: Labs from last 24 hours 12/30/16 12/30/16 12/30/16 04:44 04:44 04:44 WBC 7.3 RBC 5.35 Hgb 10.3 L Hct 32.6 L MCV 60.9 L MCH 19 L MCHC 31.6 L RDW 25.6 H Plt Count 346 MPV 8.7 L Neut % (Auto) 69.2 Lymph % (Auto) 20.4 L Dukes % (Auto) 9.7 Eos % (Auto) 0.1 Baso % (Auto) 0.3 Neut # (Auto) 5.1 Lymph # (Auto) 1.5 Dukes # (Auto) 0.7 Eos # (Auto) 0.0 Baso # (Auto) 0.0 Immature Gran % 0.3 Nucleated RBC % 0.0 Immature Gran # 0.02 Nucleated RBCs # 0.00 Platelet Estimate Normal Anisocytosis 1+ Schistocytes Few INR PT Patient/Control Mix Sodium 138 Potassium 3.3 L Chloride 104 Carbon Dioxide 23 Anion Gap 14.3 BUN 9 Creatinine 0.50 L GFR Calculation 153 BUN/Creatinine Ratio 18.00 Glucose 111 H Calculated Osmolality 274.7 Calcium 8.8 Magnesium 2.2 Triglycerides 79 Cholesterol 165 LDL Cholesterol 99.0 VLDL Cholesterol 15.8 HDL Cholesterol 55 Heart Disease Risk Ratio 3.00 Urine Test 12/30/16 12/29/16 01:37 15:23 WBC RBC Hgb Hct MCV MCH MCHC RDW Plt Count MPV Neut % (Auto) Lymph % (Auto) Dukes % (Auto) Eos % (Auto) Baso % (Auto) Neut # (Auto) Lymph # (Auto) Dukes # (Auto) Eos # (Auto) Baso # (Auto) Immature Gran % Nucleated RBC % Immature Gran # Nucleated RBCs # Platelet Estimate Anisocytosis Schistocytes INR 1.0 PT Patient/Control Mix 10.8 Sodium Potassium Chloride Carbon Dioxide Anion Gap BUN Creatinine GFR Calculation BUN/Creatinine Ratio Glucose Calculated Osmolality Calcium Magnesium Triglycerides Cholesterol LDL Cholesterol VLDL Cholesterol HDL Cholesterol Heart Disease Risk Ratio Urine Test Negative - Imaging and Cardiology Cardiology Procedure: report reviewed by me Procedure: Chest x-ray: report reviewed by me DS: Provider Date of admission: 12/29/16 10:58 Primary care physician: . No PCP Attending physician on admission: Donnell Ruvalcaba MD Consults: 12/29/16 12:28 Consult to Case Mgmt/Social Srvs [CONS] Routine Reason for Case Mgmt/Social Srvs: Discharge Planning Consult to Physician [CONS] Routine Comment: chest pain, uncontrolled HTN Consulting Provider: Donnell Ruvalcaba 12/29/16 13:25 Consult to Dietitian [CONS] Routine Reason for Dietitian: Diet Recommendations Discharging clinician: Jannette Lunsford NP Expected date of discharge: 12/30/16
[2016-12-30 16:48] VITALS: BP 120/78
== END 2016-12-30 16:46 | disposition home or self-care (01) | DRG 287 ==
LOC: EDUNIT# → EDBD → N.ED 10:10 → N.EDINP 10:56 → N.CC 11:38
PROVIDERS: ADMIT Internal Medicine Cardiovascular Disease; ATTEND Internal Medicine Cardiovascular Disease
PROC: CLCCHCL (ICD-10-PCS; 2016-12-30 09:15)